=== PATIENT | female | born 1945 | race Two or more races ===

== ENCOUNTER 2019-07-11 08:58 | Inpatient (IN) | payer OTHER ==
[~2019-07-11] VITALS: Ht 166.4 cm; Wt 73.0 kg
[2019-07-11] MEDS ORDERED: ASPIRIN EC 81 MG TABLET.DR PO ONE ×2 (09:26→09:30)
[2019-07-11 09:31] LABS: BASOPHILS % (AUTO) 0.5 % (0.0-2.0); EOSINOPHILS % (AUTO) 3.7 % (0.0-6.0); HEMATOCRIT 40 % (33-45); LYMPHOCYTES # (AUTO) 1.3 /CMM (0.8-4.8); LYMPHOCYTES % (AUTO) 23.7 % (20.0-44.0); MEAN CORPUSCULAR HGB CONC 33 g/dl (31.0-36.0); MEAN CORPUSCULAR VOLUME 89 fL (82-100); MONOCYTES # (AUTO) 0.6 /CMM (0.1-1.30); MONOCYTES % (AUTO) 11.4 % (2.0-12.0); NEUTROPHILS # (AUTO) 3.2 /CMM (1.8-8.9); NEUTROPHILS % (AUTO) 60.7 % (43.0-81.0); PLATELET COUNT (AUTO) 265 /CMM (150-450); RED BLOOD CELL COUNT(AUTO) 4.47 MIL/uL (4.0-5.2); WHITE BLOOD COUNT (AUTO) 5.3 K/uL (4.3-11.0)
--- NOTE | 2019-07-11 09:31 | NUR ---
bibhuscatrina, c/o chest pain on and off,non radiating x 2 days, jaw pain and left arm tightness started this morning 730am. On room air, breathing evenly and unlabored. connected to the monitor and pulse ox. kept comfortable, will continue to monitor accordingly.
[2019-07-11 09:38] LABS: CARBON DIOXIDE 30 mmol/L (21-32); CHLORIDE 103 mmol/L (98-107); CREATININE 0.9 mg/dL (0.6-1.3); GLUCOSE 96 mg/dL (74-106); POTASSIUM 4.2 mmol/L (3.5-5.1); SODIUM SERUM 139 mmol/L (136-145); UREA NITROGEN, BLOOD 15 mg/dL (7-18)
--- NOTE | 2019-07-11 11:18 | NUR ---
move sheet submitted to admitting and called for tele bed.
[2019-07-11] MEDS ORDERED: OMEP40CA13 PO (11:36)
[2019-07-11] MEDS ORDERED: ASPI-605 PO (11:36)
[2019-07-11] MEDS ORDERED: LACT1CAP71 PO (11:36)
[2019-07-11] MEDS ORDERED: FLUO40CA8 PO (11:36)
[2019-07-11] MEDS ORDERED: ROSU20TA32 PO (11:36)
[2019-07-11] MEDS ORDERED: UBID100C13 PO (11:36)
--- NOTE | 2019-07-11 12:28 | NUR ---
wheeled patient via wheelchair for CT angioram.
[2019-07-11] MEDS ORDERED: IV NS 0.9% 250 ML IV ONE (12:38)
[2019-07-11] MEDS ORDERED: IOHEXOL-350 100 ML VIAL IV ONE ×2 (12:38→12:53)
--- NOTE | 2019-07-11 12:42 | NUR ---
GOT BED 309-2
[2019-07-11] MEDS ORDERED: METOPROLOL TARTRATE INJ 5 MG/5 ML AMPUL ONE (12:49)
[2019-07-11] MEDS ORDERED: NITROGLYCERIN 0.4 MG/TAB BOTTLE ONE (12:49)
[2019-07-11] MEDS ORDERED: METOPROLOL TARTRATE INJ 5 MG/5 ML AMPUL IVP PRN (13:00)
[2019-07-11] MEDS ORDERED: NITROGLYCERIN 0.4 MG/TAB BOTTLE SL ONE (13:00)
--- NOTE | 2019-07-11 13:09 | NUR ---
report given to Mis SEGUNDO for jamila.
--- NOTE | 2019-07-11 13:51 | NUR ---
wheeled patient via gurney accompanied by RN and emt, in no distress going to room 309-1. RN at bedside to assume care.
[2019-07-11 14:14] VITALS: BP 127/75
[2019-07-11] MEDS ORDERED: ONDANSETRON HCL/PF 4 MG/2 ML VIAL IVP PRN (14:30)
[2019-07-11] MEDS ORDERED: ACETAMINOPHEN 325 MG TABLET PO PRN (14:30)
[2019-07-11] MEDS ORDERED: Z GUARD REMEDY 2 OZ OINT TP PRN (14:30)
[2019-07-11 16:32] VITALS: BP 138/59
[2019-07-11] MEDS ORDERED: ATORVASTATIN 40 MG TABLET PO SCH (22:00)
[2019-07-12] MEDS ORDERED: ASPIRIN EC 81 MG TABLET.DR PO SCH (09:00)
== END 2019-07-11 17:25 | disposition home or self-care (01) | DRG 596 ==
LOC: ER 08:58 → TELE 12:56 → MED 17:03
PROVIDERS: ADMIT Nurse Practitioner Acute Care; ATTEND Nurse Practitioner Acute Care
DX: B02.9 Zoster without complications (principal); I25.10 Atherosclerotic heart disease of native coronary artery without angina pectoris; E78.5 Hyperlipidemia, unspecified; I10 Essential (primary) hypertension; M19.90 Unspecified osteoarthritis, unspecified site; K21.9 Gastro-esophageal reflux disease without esophagitis; F32.9 Major depressive disorder, single episode, unspecified
CPT/HCPCS: 36415; 71045-TC; 75574; 80048-TC; 84484-TC; 85025-TC; 87081-TC; 93307-TC; G0378; J3490; J7050; Q9967